=== PATIENT | female | born 1945 | race Caucasian/White ===

== ENCOUNTER → 2024-03-18 | Outpatient (CLI) | payer MEDICARE, SELFPAY ==
[2024-03-18 11:42] LABS: Misc Send Out* See Sep Rpt
[2024-03-18 11:42] LABS: OBS Card Expiration Date 2025-10; OBS Card Lot # 22004; OBS Performed By LAB; OBS QC OK? Yes
[2024-03-18 12:14] LABS: OBS Developer Lot # 93003; Occult Blood, Stool Negative (Negative)
[2024-03-18 14:00] LABS: Stool for WBCs Few (Negative)
[2024-03-19 09:29] LABS: Clostridium Difficile PCR Positive (Negative)
[2024-03-28 06:24] LABS: Giardia Result NOT DETECTED
== END | disposition home or self-care (01) ==
LOC: SLDO 11:04
PROVIDERS: Referring Provider Specialist; Visit Provider Specialist
DX: R10.32 Left lower quadrant pain (principal); R14.0 Abdominal distension (gaseous); R10.31 Right lower quadrant pain; R10.13 Epigastric pain; K63.4 Enteroptosis; R19.7 Diarrhea, unspecified
CPT/HCPCS: 82270; 87015; 87045; 87046; 87177; 87205; 87209; 87329; 87493; 87899

== ENCOUNTER → 2024-04-20 | Outpatient (CLI) | payer MEDICARE, SELFPAY ==
[2024-04-20 15:35] LABS: Basophils % (Auto) 1 % (0-2.5); Eosinophils # (Auto) 0.2 Thou/mm3 (0.0-0.5); Eosinophils % (Auto) 2 % (0-10); Hematocrit 22.7 % (36.0-46.0); Hemoglobin 7.3 g/dL (12.0-16.0); Immature Granulocytes % (Auto) 0 % (0-0); Immature Granulocytes Auto 0.02 Thou/mm3 (0.00-0.00); Lymphocytes # (Auto) 1.5 Thou/mm3 (1.0-4.8); Lymphocytes % (Auto) 19 % (10-50); Mean Corpuscular HGB Conc 32.2 g/dl (31.0-37.0); Mean Corpuscular Hemoglobin 27.4 pg (25.0-35.0); Mean Corpuscular Volume 85 fL (80-100); Monocytes # (Auto) 0.6 Thou/mm3 (0.0-0.8); Monocytes % (Auto) 8 % (0-12); Neutrophils # (Auto) 5.6 Thou/mm3 (1.8-7.7); Neutrophils % (Auto) 70 % (37-80); Nucleated Red Blood Cell % 0 /100 WBC (0); Platelet Count 369 Thou/mm3 (140-440); RDW Standard Deviation 52.5 fL (36.4-46.3); Red Blood Count 2.66 Miln/mm3 (4.00-5.20); White Blood Count 7.9 Thou/mm3 (3.6-11.0)
[2024-04-20 15:58] LABS: Alanine Aminotransferase 17 U/L (10-49); Albumin, Serum 2.8 gm/dL (3.4-4.8); Albumin/Globulin Ratio 1.3 (1.2-2.2); Alkaline Phosphatase 140 U/L (46-116); Anion Gap 6 (7-16); Aspartate Amino Transferase 19 U/L (0-34); BUN/Creatinine Ratio 9 Ratio (12-20); Bilirubin,Total 0.2 mg/dL (0.3-1.2); Blood Urea Nitrogen 6 mg/dL (9-23); Calcium 8.6 mg/dL (8.3-10.6); Calcium (Corrected) 9.6 mg/dL (8.5-10.1); Carbon Dioxide 29.2 mMol/L (20.0-31.0); Chloride 107 mMol/L (98-107); Creatinine (Component) 0.7 mg/dL (0.6-1.3); Globulin 2.2 gm/dL (2.3-3.5); Glucose 78 mg/dL (74-106); Osmolality,Calculated 279 (275-295); Potassium 5.3 mMol/L (3.4-5.1); Sodium 142 mMol/L (136-145); eGFR > 60 See Note
[2024-04-26 07:03] LABS: ANA Screen, IFA POSITIVE (NEGATIVE)
== END | disposition home or self-care (01) ==
LOC: COPL 14:33
PROVIDERS: PCP Specialist; Referring Provider Specialist; Visit Provider Specialist
DX: R10.32 Left lower quadrant pain (principal); R14.0 Abdominal distension (gaseous); R10.31 Right lower quadrant pain; R10.13 Epigastric pain; K63.4 Enteroptosis; R19.7 Diarrhea, unspecified
CPT/HCPCS: 36415; 80053; 84439; 85025; 86038

== ENCOUNTER → 2024-05-12 | Outpatient (CLI) | payer MEDICARE, SELFPAY ==
[2024-05-12 16:30] LABS: Basophils # (Auto) 0.1 Thou/mm3 (0.0-0.2); Basophils % (Auto) 1 % (0-2.5); Eosinophils # (Auto) 0.3 Thou/mm3 (0.0-0.5); Eosinophils % (Auto) 4 % (0-10); Hematocrit 28.9 % (36.0-46.0); Hemoglobin 9.2 g/dL (12.0-16.0); Immature Granulocytes % (Auto) 1 % (0-0); Immature Granulocytes Auto 0.06 Thou/mm3 (0.00-0.00); Lymphocytes # (Auto) 2.1 Thou/mm3 (1.0-4.8); Lymphocytes % (Auto) 24 % (10-50); Mean Corpuscular HGB Conc 31.8 g/dl (31.0-37.0); Mean Corpuscular Volume 85 fL (80-100); Monocytes # (Auto) 0.9 Thou/mm3 (0.0-0.8); Monocytes % (Auto) 10 % (0-12); Neutrophils # (Auto) 5.5 Thou/mm3 (1.8-7.7); Neutrophils % (Auto) 62 % (37-80); Nucleated Red Blood Cell % 0 /100 WBC (0); Platelet Count 508 Thou/mm3 (140-440); Red Blood Count 3.41 Miln/mm3 (4.00-5.20); White Blood Count 8.9 Thou/mm3 (3.6-11.0)
[2024-05-12 16:54] LABS: Alanine Aminotransferase 18 U/L (10-49); Albumin, Serum 3.9 gm/dL (3.4-4.8); Albumin/Globulin Ratio 1.4 (1.2-2.2); Alkaline Phosphatase 140 U/L (46-116); Anion Gap 7 (7-16); Aspartate Amino Transferase 17 U/L (0-34); BUN/Creatinine Ratio 21 Ratio (12-20); Bilirubin,Total 0.2 mg/dL (0.3-1.2); Blood Urea Nitrogen 21 mg/dL (9-23); Calcium 9.7 mg/dL (8.3-10.6); Calcium (Corrected) 9.8 mg/dL (8.5-10.1); Chloride 107 mMol/L (98-107); Globulin 2.7 gm/dL (2.3-3.5); Glucose 95 mg/dL (74-106); Osmolality,Calculated 280 (275-295); Potassium 5.2 mMol/L (3.4-5.1); Sodium 139 mMol/L (136-145); Total Protein 6.6 gm/dL (5.7-8.2); eGFR 58 See Note
[2024-05-19 12:05] LABS: ANA Screen, IFA POSITIVE (NEGATIVE)
== END | disposition home or self-care (01) ==
LOC: COPL 15:09
PROVIDERS: PCP Internal Medicine; Referring Provider Specialist; Visit Provider Specialist
DX: R60.9 Edema, unspecified (principal); E78.5 Hyperlipidemia, unspecified; R63.4 Abnormal weight loss
CPT/HCPCS: 36415; 80053; 85025; 86038

== ENCOUNTER → 2024-06-13 | Outpatient (CLI) | payer MEDICARE, SELFPAY ==
[2024-06-13 16:26] LABS: Misc Send Out* See Sep Rpt
[2024-06-13 18:13] LABS: RA Screen Negative (Negative)
[2024-06-20 11:18] LABS: Sm Antibody <1.0 NEG AI (<1.0 NEGATIVE)
[2024-06-21 07:44] LABS: ANA Screen, IFA POSITIVE (NEGATIVE); ANA Titer >=1:1280 titer; Complement Component C3* 150 mg/dL (83-193); Complement Component C4c* 31 mg/dL (15-57); DNA (ds) Antibody* 191 IU/mL; Mitochondrial Ab POSITIVE (NEGATIVE); Sjogren's Antibody (SS-B) <1.0 NEG AI (<1.0 NEGATIVE); Striated Muscle Ab NEGATIVE (NEGATIVE)
[2024-06-21 07:45] LABS: Actin Antibody (IgG)* <20 U; Gastric Parietal Cell Ab* <20.0 U; Myocardial Ab, IF NEGATIVE (NEGATIVE); Scl-70 Antibody* <1.0 NEG AI (<1.0 NEGATIVE); Sm/RNP Antibody <1.0 NEG AI (<1.0 NEGATIVE); Thyroid Peroxidase Antibodies* <1 IU/mL (<9)
== END | disposition home or self-care (01) ==
LOC: COPL 15:49
PROVIDERS: PCP Internal Medicine; Referring Provider Specialist; Visit Provider Specialist
DX: R76.8 Other specified abnormal immunological findings in serum (principal)
CPT/HCPCS: 36415; 83516; 86015; 86038; 86160; 86225; 86231; 86235; 86255; 86376; 86430

== ENCOUNTER 2025-01-16 09:56 | Day surgery (SDC) | payer MEDICARE, SELFPAY ==
[2025-01-13 14:51] VITALS: BMI 23.4
[2025-01-16] VITALS (11 sets, daily range): BP systolic 129–178; BP diastolic 57–95; PULSE 65–93; RESP 13–18; TEMP 36.9; O2SAT 93–98; BMI 23.2
[2025-01-16] MEDS: SODIUM CHLORIDE 0.9% 500 ML 500 ML 20 ML IV (12:11)
[2025-01-16] MEDS: BENZOCAINE 20% (Hurricaine) SPRAY 1 DOSE TOP (12:11)
[2025-01-16] MEDS: fentaNYL CIT INJ 50 mCg/ML AMP 2ML (ASD USE ONLY) IVP (12:12)
[2025-01-16] MEDS: MIDAZOLAM INJ 1 MG/ML VIAL 2 ML (ASD USE ONLY) 2 MG IVP (12:12)
== END 2025-01-16 13:20 | disposition home or self-care (01) ==
PROVIDERS: PCP Internal Medicine; Referring Provider Specialist; Visit Provider Specialist
PROC: (CPT 43239; principal; 2025-01-16 09:45)
DX: K22.2 Esophageal obstruction (principal); K20.90 Esophagitis, unspecified without bleeding; K29.70 Gastritis, unspecified, without bleeding
CPT/HCPCS: 43248; 43249; A4649; C1726; C1769; J1200; J2250; J3010; J7999; A9270